=== PATIENT | female | born 1960 | race Caucasian/White ===

== ENCOUNTER → 2017-12-11 20:13 | Outpatient (CLI) | payer MEDICARE, SELFPAY ==
--- NOTE | 2017-12-11 20:19 | DI.MRI.S_ITS ---
PROCEDURE: MR KNEE RT WO CON INDICATIONS: INTERNL DERANGEMENT OF RIGHT KNEE TECHNIQUE: Noncontrast sagittal PD fast spin echo and T2 fast spin echo with fat saturation, sagittal 3-D FLASH with fat saturation; coronal T1 spin echo and PD fast spin echo with fat saturation, and axial PD fast spin echo with fat saturation through the knee. COMPARISON: [facility] [place], CR, XR KNEE ARTHRITIC SERIES RT, 12/09/2017, 14:29. FINDINGS: Image quality: Excellent. Menisci: The medial and lateral menisci demonstrate normal morphology and internal signal. The meniscal root ligaments appear intact. Cruciate ligaments: The anterior and posterior cruciate ligaments appear intact. Medial structures: The medial collateral ligament appears intact. Visualized portions of the pes anserinus tendons appear normal. No abnormal bursal fluid. Lateral structures: The lateral collateral ligament, long and short heads of the biceps femoris tendon appear intact. The popliteus tendon appears normal. Iliotibial band appears normal. Anterior structures: The quadriceps and patellar tendons appear intact. Mild superolateral patellar subluxation. No femoral trochlear dysplasia or ventral trochlear prominence. There is mild edema within the superolateral aspect of the infrapatellar fat pad. Bones and cartilage: No bone marrow contusions or fractures. Mild ill-defined T2 signal elevation within the lateral patellar facet inferiorly is present, consistent with degenerative marrow edema. Mild tricompartmental articular osteophyte formation. Mild diffuse articular cartilage loss overlies the weightbearing aspects of the medial femoral condyle and medial tibial plateau. Articular cartilage fibrillation overlies the patellar apex and lateral patellar facet. Joint space: There is physiologic knee joint fluid. No Vazquez's cyst. Normal appearing synovial plicae are incidentally noted. IMPRESSION: 1. 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 2. No internal derangement. 3. Mild medial compartment articular cartilage loss. Dictated by: Rupal Humphrey M.D. on 12/12/2017 at 9:36 Approved by: Rupal Humphrey M.D. on 12/12/2017 at 9:38
== END ==
PROVIDERS: PCP Internal Medicine; Visit Provider Orthopaedic Surgery
DX: M23.91 Unspecified internal derangement of right knee (principal)
CPT/HCPCS: 73721

== ENCOUNTER → 2017-12-31 10:39 | Outpatient (CLI) | payer MEDICARE, SELFPAY | PROVIDERS: PCP Internal Medicine; Visit Provider Orthopaedic Surgery Orthopaedic Surgery of the Spine | DX: M47.22 Other spondylosis with radiculopathy, cervical region (principal); Z53.9 Procedure and treatment not carried out, unspecified reason ==

== ENCOUNTER → 2018-01-09 15:07 | Outpatient (CLI) | payer MEDICARE, SELFPAY ==
--- NOTE | 2018-01-09 | DI.CT.S_ITS ---
PROCEDURE: CT CERVICAL SPINE WO CON INDICATIONS: SPONDYLOSIS TECHNIQUE: Noncontrast 3 mm thick sections acquired from the skull base to the T4 level. Sagittal and coronal reformats were then constructed. For radiation dose reduction, the following was used: automated exposure control, adjustment of mA and/or kV according to patient size. COMPARISON: [facility], , L-SPINE 2-3 VIEWS, 05/19/2015, 15:47. [facility] [place], CR, SPINE CERVICAL 2 OR 3VW, 05/06/2015, 14:06. [facility] [place], CR, SPINE CERVICAL 2 OR 3VW, 06/29/2015, 15:54. [facility] [place], CR, SPINE CERVICAL 2 OR 3VW, 09/21/2015, 15:48. [facility] [place], CR, SPINE CERVICAL 2 OR 3VW, 05/10/2016, 15:07[facility] 3 [facility], 12/26/2017, 15:32. FINDINGS: Image quality: Excellent. Bones: Prior C4-C7 anterior fusion plating is stable in appearance over time with reference to the immediate postoperative plain film imaging from 05/19/15. A previously present fixation plate had been present before the operative procedure, beginning at C5. The operative procedure appears to have removed the original anterior plates and replaced with the current plate. A C5 level original screw fracture resulted in a short segment of the distal left-sided original screw being abandoned, and the current CT scanning shows no evidence of device loosening or disruption subsequently. The C5 current fixation of the plate is unilateral on the right and at the 3 levels below is bilateral. Mild degenerative disc that reduction is seen at C3-C4, immediately above the beginning of the anterior fixation plate. Mild to moderate cystic degeneration is seen at C7-T1 at the inferior area of the anterior plate fixation. No subluxation is present. No significant spinal or foraminal stenosis has developed. Normal alignment maintained, no fractures or dislocations. Visualized superior ribs are intact. Soft tissues: Prevertebral soft tissues are normal in thickness. No paravertebral hematomas. No apical pneumothoraces. IMPRESSION: Post surgical changes as discussed, after revision of a prior C5-C7 anterior fixation plate and screws in 2015. This subsequent C4 through C7 anterior fixation plate and screws shows no sign of device loosening or disruption. As discussed above one of the original screws at the C5 level fractured at its distal aspect and remains in place, with a single right-sided fixation screw at the C5 level from the most recent surgery. Chronic degenerative disc disease is present but has not worsened and now a new area of spinal or foraminal stenosis is suspected. Dictated by: Vasile Foote M.D. on 01/09/2018 at 16:40 Approved by: Vasile Foote M.D. on 01/09/2018 at 16:51
== END ==
PROVIDERS: PCP Internal Medicine; Visit Provider Orthopaedic Surgery Orthopaedic Surgery of the Spine
DX: M47.22 Other spondylosis with radiculopathy, cervical region (principal); M50.11 Cervical disc disorder with radiculopathy, high cervical region; Z98.1 Arthrodesis status
CPT/HCPCS: 72125